=== PATIENT | male | born 1945 ===

== ENCOUNTER 2016-09-28 17:59 | Inpatient (IN) ==
[2016-09-28] MEDS ORDERED: LASIX IV ONE (18:18)
[2016-09-28] MEDS ORDERED: SOLU-MEDROL IV ONE (18:18)
[2016-09-28] MEDS ORDERED: NITROGLYCERIN TOP ONE (18:19)
[2016-09-28 18:37] LABS: BE 0.4 mmoll (-3.0-3.0); BLOOD TYPE ARTERIAL; DRAW SITE L RADIAL; METHB 1.6 % (0.0-1.5); O2(CT) 19.3 mL/dL (15.0-23.0); PCO2(98.6) 32 mmHg (35-45); PO2(98.6) 79 mmHg (60-100); SAMPLE BLOOD; THB 14.5 g/dL (11.5-17.4); pH(98.6) 7.47 (7.35-7.45)
[2016-09-28 18:40] LABS: ALLEN TEST YES; MODALITY CANNULA
[2016-09-28 18:51] LABS: MANUAL DIFF NEEDED? NO
[2016-09-28 18:53] LABS: BASO% 0.2 % (0.0-0.8); EOS# 0.32 X1000 (0.0-0.7); EOS% 2.4 % (0.0-10.0); HEMATOCRIT 41.7 % (42.0-52.0); HEMOGLOBIN 14.2 g/dL (14.0-18.0); IMM GRAN# 0.02 X1000 (0.0-0.04); IMM GRAN% 0.1 % (0.0-0.5); LYMPH# 1.39 X1000 (1.2-3.4); LYMPH% 10.3 % (20.5-51.1); MCH 32.3 PG (27-31); MCHC 34.1 g/dL (33-37); MONO# 1.44 X1000 (0.11-0.59); MONO% 10.7 % (1.7-9.3); MPV 9.9 FL (7.4-10.4); NEUT% 76.3 % (42.2-75.2); PLT 204 X1000 (130-400); RBC 4.39 XMIL (4.7-6.1)
--- NOTE | 2016-09-28 18:57 | EKG Report ---
Test Performed on : 09/28/2016 6:14:14 PM Test Reason : CHEST PAIN Blood Pressure : / mmHG Vent. Rate : 114 BPM Atrial Rate : 150 BPM P-R Int : 000 ms QRS Dur : 084 ms QT Int : 372 ms P-R-T Axes : 000 051 079 degrees QTc Int : 512 ms Atrial fibrillation. with rapid ventricular response. Nonspecific ST and T wave abnormality Abnormal ECG No previous ECGs available Unconfirmed Result
[2016-09-28 19:13] LABS: URINE CULTURE PL NEEDED? NO
[2016-09-28 19:19] LABS: CALCIUM 9.3 mg/dL (8.8-10.2); POTASSIUM 3.7 mmol/L (3.5-5.1); TOTAL BILIRUBIN 0.4 mg/dL (0.20-1.00); TOTAL PROTEIN 6.9 g/dL (6.3-8.3)
[2016-09-28 19:20] LABS: INR 1.36 (0.86-1.15)
[2016-09-28 19:21] LABS: PTT PL 44.1 Seconds (22.6-43.9)
[2016-09-28 19:28] LABS: FREE T4 1.41 ng/dL (0.93-1.70)
[2016-09-28 19:38] LABS: BILIRUBIN URINE NEGATIVE (NEGATIVE); BLOOD URINE NEGATIVE (NEGATIVE); CLARITY CLEAR (CLEAR); COLOR YELLOW; GLUCOSE URINE NEGATIVE (NEGATIVE); LEUKOCYTES URINE NEGATIVE (NEGATIVE); NITRITE URINE NEGATIVE (NEGATIVE); PH URINE 6.5; PROTEIN URINE NEGATIVE (NEGATIVE); SP GRAVITY URINE 1.005; UROBILINOGEN URINE NORMAL
[2016-09-28 19:50] LABS: UR AMPHETAMINES QUAL NONE DETECTED (NONE DETECT); UR BARBITUATES QUAL NONE DETECTED (NONE DETECT); UR BENZODIAZEPIN QUAL NONE DETECTED (NONE DETECT); UR CANNABINOIDS QUAL NONE DETECTED (NONE DETECT); UR COCAINE QUAL NONE DETECTED (NONE DETECT); UR MDMA QUAL NONE DETECTED (NONE DETECT); UR METHADONE QUAL NONE DETECTED (NONE DETECT); UR METHAMPHETAMINE QUAL NONE DETECTED (NONE DETECT); UR OPIATES QUAL NONE DETECTED (NONE DETECT); UR OXYCODONE QUAL NONE DETECTED (NONE DETECT); UR PCP QUAL NONE DETECTED (NONE DETECT); UR TCA QUAL NONE DETECTED (NONE DETECT)
[2016-09-28 19:52] LABS: URINE CAST NONE SEEN /LPF; URINE CRYSTAL NONE SEEN /HPF; URINE EPITHELIAL CELLS <10 /HPF (<10); URINE SOURCE CLEAN CATCH
[2016-09-28] MEDS ORDERED: CARDIZEM IV ONE (19:57)
--- NOTE | 2016-09-28 20:18 | Diag Imaging Result Document ---
PROCEDURE NAME: CHEST-2 VIEWS - 09/28/2016 CHEST, 2 VIEWS: FINDINGS: No comparison exam. Heart size appears the upper range of normal. There are bilateral interstitial opacities which are most prominent at the lower lungs. There is no dense consolidation identified. There are possible tiny bilateral pleural effusions. There is no pneumothorax seen. IMPRESSION: Bilateral interstitial opacities, most prominent at the lower lungs. These may relate to interstitial pneumonitis or interstitial edema.
[2016-09-28] MEDS: CARDIZEM 100 MG/NS 100 MG/100 ML IVPB IV SCH (21:54)
[2016-09-28] MEDS ORDERED: MORPHINE IV PRN (23:03)
[2016-09-28] MEDS ORDERED: ZOFRAN IV PRN (23:03)
--- NOTE | 2016-09-29 00:35 | Diag Imaging Result Document ---
PROCEDURE NAME: ANGIOGRAM/PULMONARY ARTERIES - 09/28/2016 FINDINGS: Exam performed with intravenous contrast. A dose reduction protocol was used. Axial and reformatted coronal images are obtained. No comparison CT scan is available. There are no filling defects identified in the pulmonary arteries. There are small to medium bilateral pleural effusions with some adjacent dependent atelectasis. There is no consolidation or pneumothorax identified. Included sections of upper abdomen show scattered well-demarcated fluid density lesions in the liver, which measure up to 2.6 cm, and are compatible with cysts. IMPRESSION: 1. No evidence of pulmonary embolism. 2. Small to medium bilateral pleural effusions with adjacent dependent atelectasis. No discrete pneumonia.
[2016-09-29] MEDS: CARDIZEM 100 MG/NS 100 MG/100 ML IVPB IV SCH ×4 (03:50→20:24)
[2016-09-29] MEDS ORDERED: MORPHINE IV PRN ×2 (07:41→14:14)
[2016-09-29] MEDS ORDERED: LASIX IV ONE ×2 (08:34→08:39)
[2016-09-29] MEDS ORDERED: COZAAR PO SCH (09:00)
[2016-09-29] MEDS ORDERED: ASPIRIN PO SCH (09:00)
[2016-09-29] MEDS: ELIQUIS PO SCH ×2 (09:10→20:25)
[2016-09-29 09:16] LABS: BASO% 0.1 % (0.0-0.8); EOS# 0.01 X1000 (0.0-0.7); EOS% 0.1 % (0.0-10.0); HEMATOCRIT 38.8 % (42.0-52.0); HEMOGLOBIN 13.1 g/dL (14.0-18.0); IMM GRAN# 0.02 X1000 (0.0-0.04); IMM GRAN% 0.2 % (0.0-0.5); LYMPH# 0.57 X1000 (1.2-3.4); LYMPH% 4.8 % (20.5-51.1); MANUAL DIFF NEEDED? YES; MCHC 33.8 g/dL (33-37); MCV 94.9 FL (81-99); MONO# 0.43 X1000 (0.11-0.59); MONO% 3.6 % (1.7-9.3); MPV 10.7 FL (7.4-10.4); NEUT% 91.2 % (42.2-75.2); PLT 211 X1000 (130-400); RBC 4.09 XMIL (4.7-6.1)
[2016-09-29 09:24] LABS: AGAP 17; BUN 20 mg/dL (8-22); CHLORIDE 100 mmol/L (98-107); COSMO 283; POTASSIUM 3.7 mmol/L (3.5-5.1); SODIUM 138 mmol/L (136-145); TCO2 21 mmol/L (25-35)
--- NOTE | 2016-09-29 10:44 | HISTORY AND PHYSICAL ---
CHIEF COMPLAINT: Palpitations. HISTORY OF PRESENT ILLNESS: A 71-year-old male with a past medical history of atrial fibrillation, hypertension and obesity came in to the emergency department yesterday with a chief complaint of flu-like symptoms and palpitations. This patient is coming from [place] and he is just visiting here with a family member. Also. He states that 1 month ago he was hospitalized in [place] secondary to atrial fibrillation and RVR and he was discharged 2 days after that. As per the patient, he has been presenting flu-like syndrome including generalized weakness and runny nose for the past 2 days but yesterday he was complaining of shortness of breath and palpitations so he decided to come to the emergency department. In the emergency department, they found out that this patient has atrial fibrillation with an increase of heart rate, RVR. He was placed on diltiazem drip, and he was transferred to the ICU. Today, I evaluated this patient. This patient is stable. He is still with high heart rate and the cardiology department has been consulted. REVIEW OF SYSTEMS: Extremities: This patient states that he has been having lower extremity edema for the past 2 weeks and also on his previous hospitalization 1 month ago. The rest of the 14 points of the review of systems were reviewed. All negative except as per HPI. PAST MEDICAL HISTORY: Hypertension, obesity. FAMILY HISTORY: Father with stroke and hypertension. Mother with cancer probably at the level of the liver. PAST SURGICAL HISTORY: Cholecystectomy and TURP. SOCIAL HISTORY: He used to smoke but he stopped smoking in 1979. He is a retired teacher. No drugs. Alcohol occasionally. ALLERGIES: No known allergies. BLOOD TRANSFUSIONS: No blood transfusion. MEDICATIONS: Aspirin 81 mg p.o. daily. Diltiazem 180 mg p.o. daily. Eliquis 5 mg p.o. b.i.d., atorvastatin 10 mg p.o. daily, losartan 100 mg p.o. daily, metoprolol tartrate 25 mg p.o. b.i.d., ranitidine 150 mg p.o. b.i.d. PHYSICAL EXAMINATION: VITAL SIGNS: Temperature 98.9 degrees, pulse on the monitor 119, respiratory rate 20, blood pressure 130/71, O2 saturation 100% on 2 L of nasal cannula. HEENT: Head normocephalic. No trauma. PERRLA. NECK: Supple. No JVD. No masses. Central trachea. CHEST: Mild rales at the level of the bases. No wheezing. CARDIOVASCULAR: Irregularly irregular rate and rhythm. No murmurs. Tachycardic. ABDOMEN: Soft, nontender, nondistended. No hepatosplenomegaly. Obese. EXTREMITIES: 2+ lower extremity edema up to the knee. NEUROLOGICAL: The patient is alert and oriented x3. No focal neurological deficits. LABORATORY DATA: Pending today's laboratory. Laboratory, 09/28/2016, WBC 13.5 , hemoglobin 14.2, hematocrit 41.7, platelets 204,000. Sodium 137, potassium 3.7, chloride 101, bicarbonate 23, BUN 16, creatinine 1.2, glucose 116, calcium 9.3. BNP 2044. Troponins negative x2. TSH 2.1. Free T4 of 1.4. ASSESSMENT AND PLAN: 1. Atrial fibrillation with RVR, this patient has been placed in ICU, he is currently on diltiazem drip, cardiology department has been consulted. We will follow their recommendations. This patient is not complaining at this moment of chest pain or shortness of breath. We will continue with the same treatment. Probably today, we can start this patient on his home medications once the heart rate is better controlled. 2. Hypertension. The blood pressure is stable. Continue with the same management. 3. Questionable congestive heart failure, this patient has bilateral lower lung fluid and also fluid at the level of the lower extremities, he received 1 dose apparently in the emergency department of [facility] and I want to repeat it today. His proBNP is 2044. 4. Elevated D-dimer, this patient is not complaining of shortness of breath and he has no pain at the level of the lower extremities. We will monitor. We did a CT angiogram that showed no evidence of pulmonary embolism and a small to medium bilateral pleural effusion with dependent atelectasis, no discrete pneumonia. cc: Wesley Dawkins MD [facility] HOSPITALMary
[2016-09-29 11:18] LABS: LYMPHS 6 % (21-51); MONO 2 % (1-9)
--- NOTE | 2016-09-29 12:17 | CONSULTATION ---
DATE OF CONSULTATION: 09/29/2016 REASON FOR CONSULTATION: Atrial fibrillation. HISTORY OF PRESENT ILLNESS: Mr. Kyle is a 71-year-old gentleman who was diagnosed to have atrial fibrillation, has hypertension, obesity. Was admitted in August 14 with similar symptoms and was diagnosed to have atrial fibrillation. He followed up with a branch director there and he was put on medications and anticoagulation therapy for stroke prophylaxis. He states he did not have any myocardial infarction. No other cardiac history at that time and as far as he can remember his tests that were normal from a cardiac standpoint. He is visiting family in [place]. Has had noticed some runny nose and palpitations with increasing shortness of breath, similar to what he had when he was admitted in [place]. He was noted to be in atrial fibrillation, rapid rate, and started on a Cardizem drip. He denies chest pain. There is no dizziness of josie syncope. REVIEW OF SYSTEMS: A 14 point review of systems was done.GI: There is no history of nausea, vomiting, diarrhea. There is no history of hematemesis or melena. Respiratory System: There is no history of fevers. Other symptoms as above. Genitourinary: There is no dysuria or hematuria. Endocrine: Stable. PAST MEDICAL HISTORY: Hypertension, atrial fibrillation recent diagnosis, obesity. FAMILY HISTORY: Father with stroke and hypertension. Mother with cancer. PAST SURGICAL HISTORY: Cholecystectomy, TURP. SOCIAL HISTORY: He used to smoke but he quit smoking in 1979. He is a retired teacher. There is no history of alcohol abuse. ALLERGIES: Not known to be allergic to any medications HOME MEDICATIONS: Aspirin 81 mg a day, Cardizem 180, Eliquis 5 mg p.o. b.i.d., atorvastatin 10, losartan 100, metoprolol 25 b.i.d., ranitidine. PHYSICAL EXAMINATION: Vital Signs: Blood pressure was 130/70. Cardiovascular System: Normal jugular venous pressure. There is no thyromegaly. No carotid bruit. First and second heart sounds were heard. There is no S3 gallop. Respiratory System: Normal air entry. There are no crepitations or rhonchi. Abdomen: Soft, nontender. There was no guarding or rigidity. Bowel sounds were heard. Central nervous system: Alert, oriented, was moving all 4 extremities. Extremities: Examination of lower extremities reveal trace edema. LABORATORY EXAMINATION: WBC 13, hemoglobin 14.2, hematocrit 41, platelet count of 204,000. Sodium 137, potassium 3.7, BUN 23, creatinine 1.2. Cardiac enzymes negative. TSH was normal. ASSESSMENT AND PLAN: Mr. Gamal Kyle is a 71-year-old gentleman with a history of hypertension, obesity diagnosed to have atrial fibrillation in [place] in August. He has been taking his medications and anticoagulation therapy since then on a regular basis. He is admitted with flu-like symptoms. However, he also had increasing palpitations and shortness of breath similar to when he was admitted in [place]. RECOMMENDATIONS: 1. I had a detailed discussion with the patient. Would recommend an elective cardioversion. He has been anticoagulated for more than a month. We will plan for elective cardioversion. 2. We will get an echocardiogram to assess cardiac and valvular function. 3. We will transfer him to [facility]. 4. I will start him on amiodarone per standard protocol p.o. tablets and I have also advised him after his cardioversion that we would like him to follow up with his branch director and primary physician in [place] as soon as he gets back to [place]. 5. As far as other medications are concerned, he was on beta-blockers and Cardizem at home. I will discontinue the beta-blockers and once he is cardioverted we will put him back on p.o. Cardizem at a lower dose given the fact that we are starting him on amiodarone. He has a history of hypertension. He is on losartan and would recommend continuing the losartan. 6. He was started on aspirin. I have not made any changes. I do not think he has had a stress test to rule out and assess for ischemia. He denies any chest pain. I have advised him to continue with the aspirin but probably would require a stress test which he can have done and follow up with his physicians in [place]. cc: Jw Mohr MD
[2016-09-29] MEDS ORDERED: ZOFRAN IV PRN (14:14)
[2016-09-29] MEDS: ASPIRIN PO SCH (15:18)
[2016-09-29] MEDS: COZAAR PO SCH (15:19)
[2016-09-29] MEDS: LIPITOR PO SCH (20:25)
[2016-09-29] MEDS: CORDARONE PO SCH (20:25)
[2016-09-29] MEDS ORDERED: LIPITOR PO SCH (21:00)
[2016-09-29] MEDS ORDERED: CORDARONE PO SCH (21:00)
[2016-09-30] MEDS: CARDIZEM 100 MG/NS 100 MG/100 ML IVPB IV SCH ×2 (06:38→13:41)
[2016-09-30] MEDS: ASPIRIN PO SCH ×2 (09:02→09:44)
[2016-09-30] MEDS: ELIQUIS PO SCH ×3 (09:03→20:56)
[2016-09-30] MEDS: COZAAR PO SCH ×2 (09:03→09:44)
[2016-09-30] MEDS: CORDARONE PO SCH ×3 (09:03→20:56)
--- NOTE | 2016-09-30 10:04 | ECHO REPORT ---
ORDER DATE: 09/29/2016 ECHOCARDIOGRAPHIC MEASUREMENTS: 1. Interventricular septum 1, left ventricular posterior wall 1, diastolic diameter 5.4, left atrium 3.8, aorta 3.4. 2. Aortic valve leaflets were sclerosed, trileaflet, opening normally. Tricuspid valve was normal. Pulmonic valve was normal. There was mild pulmonary regurgitation. 3. Atrial fibrillation was noted. There is left atrial enlargement. Normal left ventricular cavity size. Estimated ejection fraction of 50-55%. There was mild LV dysfunction. 4. Doppler studies revealed mild mitral regurgitation. 5. Mild tricuspid regurgitation. Peak velocity across the tricuspid valve was 2.8 m/sec. Pulmonary artery systolic pressure of 41 mmHg. 6. There is no pericardial effusion or obvious intracardiac mass or thrombus seen. 7. Peak velocity across the aortic valve less than 2 m/sec by Doppler studies. There is no aortic stenosis or regurgitation. 8. There is mild mitral annular calcification. cc: Jw Mohr MD
--- NOTE | 2016-09-30 10:17 | PROGRESS NOTE ---
DATE: 09/30/2016 HISTORY: This is a 71-year-old. He presented with palpitations. Has a past medical history of atrial fibrillation diagnosed about a month ago. History of hypertension and mild obesity. He came to the emergency department yesterday with a chief complaint of flu-like symptoms and palpitations. He was visiting from [place] with another family member. States 1 month ago, he was hospitalized in [place] secondary to atrial fibrillation with rapid ventricular rate. Discharge 2 days after that as per patient. He presented with flu-like symptoms, generalized weakness, runny nose for the past couple days. Complained of shortness of breath and palpitations, and decided to come to the emergency department. In the emergency room, they found he was in atrial fibrillation with rapid ventricular rate. They put him on a diltiazem drip. Appeared hemodynamically stable. Past medical history of hypertension, obesity. This morning, he says he feels good. Feels like his heart rate is back to normal. He did have a pulmonary arteriogram yesterday and no evidence of pulmonary embolism. Small to medium bilateral pleural effusions, adjacent dependent atelectasis. No discrete pneumonia appreciated. EKG from the revealed atrial fibrillation with rapid ventricular rate. No significant ST-segment deviation. ASSESSMENT AND PLAN: 1. Atrial fibrillation with rapid ventricular rate. Cardiology to see. He is on a diltiazem drip. He did have some chest pain so we will probably need to make sure there is no coronary insufficiency. Continue to treat the atrial fibrillation and see if he may have had spontaneous cardioversion. 2. Hypertension. Blood pressure is stable. 3. Questionable history of congestive heart failure. I am sure we will explore that, see if we can get records from [place]. He may well need an echocardiogram. He had an elevated D-dimer but pulmonary arteriogram was unremarkable. 4. Review of his orders. He is on Cordarone 400 mg twice a day, Eliquis 5 mg twice a day, aspirin 81 mg a day, Lipitor 10 mg at bedtime. He is on a diltiazem drip, Cozaar 100 mg a day. He was given 1 dose of Lasix yesterday. 5. Review of his lab again. Electrolytes look okay. We may supplement him with a little bit of potassium. cc: Forrest Chappell MD
[2016-09-30] MEDS: KLOR-CON PO SCH (11:45)
[2016-09-30] MEDS ORDERED: XYLOCAINE 4% TOPICAL SOLUTION ONE (11:46)
[2016-09-30] MEDS ORDERED: NS 1,000 ML ONE (12:08)
[2016-09-30] MEDS ORDERED: CLAVE ANES SET 100 IN 11965 ONE (12:08)
[2016-09-30] MEDS ORDERED: CLAVE TWINSITE 32 IN 11959 ONE (12:08)
--- NOTE | 2016-09-30 12:13 | EKG Report ---
Test Performed on : 09/30/2016 10:15:41 AM Test Reason : afib Blood Pressure : / mmHG Vent. Rate : 102 BPM Atrial Rate : 089 BPM P-R Int : 000 ms QRS Dur : 094 ms QT Int : 360 ms P-R-T Axes : 000 036 -04 degrees QTc Int : 469 ms Atrial fibrillation. with rapid ventricular response. Nonspecific ST and T wave abnormality Abnormal ECG When compared with ECG of 28-SEP-2016 18:14, Nonspecific T wave abnormality has replaced inverted T waves in Inferior leads Nonspecific T wave abnormality has replaced inverted T waves in Anterior leads Confirmed by Ebonie BLAIR, Remi Alejandro ([id number]) on 10/02/2016 5:30:31 PM
[2016-09-30] MEDS ORDERED: DIPRIVAN 1% ONE (13:22)
[2016-09-30] MEDS ORDERED: VERSED ONE (13:23)
[2016-09-30] MEDS ORDERED: XYLOCAINE-MPF 2% ONE (13:35)
--- NOTE | 2016-09-30 17:49 | ECHO REPORT ---
ORDER DATE: 09/30/2016 TRANSESOPHAGEAL ECHOCARDIOGRAPHY CARDIOVERSION REPORT: SUMMARY: After intravenous sedation per Diprivan per anesthesiology, I passed transesophageal echocardiography probe into the esophagus without difficulty. Transesophageal echocardiography subsequently performed and revealed. 1. Aortic, mitral, tricuspid and pulmonic valves are without structural abnormality. There is mild centrally directed mitral regurgitation. There is trace aortic regurgitation passing between the base of the noncoronary cusp and left coronary cusp. There is mild tricuspid regurgitation. 2. Normal left ventricular dimensions suggested. Estimated left ventricular ejection fraction approximately 50%. No regional wall motion abnormalities are evident. Left atrium, right atrium, and right ventricle are of normal size with grossly preserved right ventricular systolic performance. All 4 cardiac chambers and left atrial appendage are free of intracardiac thrombus. There is spontaneous contrast evident in left atrium. 3. Interatrial septum appears intact without evidence on color Doppler of interatrial shunting. Intravenous agitated saline contrast study performed and reveals no evidence of intracardiac shunting. 4. Aortic root, proximal ascending aorta and descending thoracic aorta appear free of atheromata. 5. No pericardial effusion. Given that there is no evidence of intracardiac thrombus, synchronous direct current cardioversion of atrial was pursued. The patient was cardioverted with synchronized shock with 200 joules biphasic converting atrial fibrillation to sinus rhythm. CONCLUSIONS: 1. Mild mitral regurgitation, mild tricuspid regurgitation, and trace aortic regurgitation. 2. No intracardiac thrombus. 3. Estimated left ventricular ejection fraction 50%. 4. Successful direct current cardioversion of atrial fibrillation restoring sinus rhythm. cc: MD Nya Sanchez PA
[2016-09-30] MEDS: LIPITOR PO SCH (20:56)
[2016-10-01] MEDS: KLOR-CON PO SCH (09:21)
[2016-10-01] MEDS: CORDARONE PO SCH (09:21)
[2016-10-01] MEDS: ASPIRIN PO SCH (09:22)
[2016-10-01] MEDS: COZAAR PO SCH (09:22)
[2016-10-01] MEDS: ELIQUIS PO SCH (09:22)
[2016-10-01 11:41] VITALS: BP 130/66
--- NOTE | 2016-10-01 13:52 | PROGRESS NOTE ---
DATE: 10/01/2016 SUBJECTIVE: Today, Mr. Kyle refers to be doing better. Denies any generalized fatigue or dizziness. Patient is status post YESI with cardioversion yesterday. His heart rate has now been in sinus since then. OBJECTIVE: Vital signs: Blood pressure is 130/66, pulse of 65, respirations 14 , temperature 97.6. General: Mr. Gamal Kyle is a 71-year-old male. He was in bed and he did not seem to be in any distress. HEENT: Mucosa is pink and moist, anicteric, acyanotic. Neck: Supple. Chest: Good air entry bilaterally. No crepitations. No rhonchi. Cardiovascular: Regular rate and rhythm. Telemetry shows normal sinus. Abdomen: Soft. Extremities: Maybe about 1+ pedal edema. SEARCH ENGINE MARKETING MANAGER: Patient is alert and oriented x4. There is no focal neurological deficit. LABORATORY DATA: None for today. A chest x-ray that was done. A CTA which was done on presentation shows no evidence of PE, but there was small to moderate bilateral pleural effusions with adjacent dependent atelectasis. ABG was unremarkable. Saturation was in the 94 at 1 point on admission. ASSESSMENT: 1. Acute diastolic heart failure due to tachyarrhythmias( Afib with RVR). 2. Atrial fibrillation, rapid ventricular rate on presentation. Patient is status post transesophageal echocardiogram with cardioversion. The patient does have high [id number] score at least 3. One for age,Hypertension and congestive heart failure which will qualify him to be on anticoagulation for the rest of his life. Patient is currently on Eliquis. 3. Hypertension controlled. 4. Bilateral pleural effusions on admission due to diastolic heart failure. PLAN: In general, Mr. Kyle is doing a whole lot better. He did have a YESI with direct cardioversion yesterday. Since then, he has been in sinus rhythm. If it is okay with Cardiology we are going to discharge him today. Patient will follow up with Dr. Pearson and he will go home on current medications which include amiodarone, Eliquis, aspirin, atorvastatin, Cozaar. We will withhold the metoprolol and diltiazem until he follows up with Cardiology. cc: MD JACKELINE Arellano
--- NOTE | 2016-10-02 10:02 | DISCHARGE SUMMARY ---
ADMISSION DATE: 09/28/2016 DISCHARGE DATE: 10/01/2016 CONSULTATIONS: Dr. Mohr, cardiology. PERTINENT PROCEDURES: 1. Pulmonary arteriogram showed no evidence of pulmonary embolism. Small to medium bilateral pleural effusions with adjacent dependent atelectasis. No discrete pneumonia. 2. Echocardiogram showed an EF of 50 to 55% with mild LV dysfunction. 3. DCC cardioversion performed by Dr. Melo Champion. Successful cardioversion of atrial fibrillation, restoring sinus rhythm. DISCHARGE DIAGNOSES: 1. Atrial fibrillation with rapid ventricular response. Initially on Cardizem drip. The patient underwent a DCC cardioversion with Dr. Champion with successful cardioversion to sinus rhythm. Patient will continue on amiodarone as well as Eliquis. 2. Hypertension. Continue home medications. 3. Obesity. Patient educated on diet and exercise. HOSPITAL COURSE: Briefly, Mr. Kyle is a 71-year-old gentleman who was diagnosed with atrial fibrillation, hypertension, and obesity. He is from [place]. He was admitted back in August, the 1st week with similar symptoms. Was diagnosed to have atrial fibrillation. He had a loader engineer in [place] who put him on medications and anticoagulation therapy for stroke prophylaxis. There was no myocardial infarction. No other cardiac history that the patient could remember. Patient was visiting family member in [place]. He noticed he was having a runny nose as well as palpitations and an increase in shortness of breath, similar to what he had when he was admitted in [place]. In the ED he was noted to be in atrial fibrillation with RVR, started on a Cardizem drip, and transferred to [facility] where he was admitted to the CICU unit. He was started on amiodarone per the standard protocol, p.o. tablets. He did undergo a DCC cardioversion with Dr. Champion and he has been advised to follow up with his primary loader engineer and primary care physician in [place] as soon as possible. They did lower the dose of his Cardizem given the fact that they were starting him on amiodarone and they discontinued his beta emerson once he was converted to sinus rhythm and continued on his losartan, as well as started on aspirin. Cardiology feels that the patient is appropriate for discharge home today. VITAL SIGNS: At time of discharge, temperature is 97.6 degrees, heart rate 65, respirations 14, blood pressure 130/66, O2 is 98%. DISCHARGE DIET: Healthy heart. DISCHARGE MEDICATIONS: 1. Amiodarone 400 mg p.o. b.i.d. 2. Eliquis 5 mg p.o. b.i.d. 3. Aspirin 81 mg p.o. daily. 4. Lipitor 10 mg p.o. daily. 5. Losartan 100 mg p.o. daily. 6. Zantac 150 mg p.o. b.i.d. FOLLOWUP: The patient is being discharged home. He will need to follow up with his primary care physician as well as home loader engineer as soon as he gets back to [place], no more than 2 weeks. He can return to the ED for any worsening of symptoms. DISCHARGE TIME: 30 minutes. Dictated by EMILY Matthew for Carlos Pena MD cc: Carlos Pena MD
--- NOTE | 2016-12-26 18:25 | PROVIDER DOCUMENTATION ---
This chart was entered by Tiffanie Saunders Scribe, acting as scribe for Andrew Argueta DO. HPI-Chest Pain - General Chief Complaint: Chest Pain Stated Complaint: CHEST PAIN, SOB Time Seen by Provider: 09/28/16 18:13 Source: patient Allergies/Adverse Reactions: Patient Allergies Allergy/AdvReac Type Severity Reaction Status Date / Time No Known Allergies Allergy Verified 09/28/16 18:12 Home Medications: Home Medication List Medication Instructions Recorded Confirmed Last Taken Type ATORVAstatin [Lipitor] 10 mg PO DAILY 09/28/16 09/29/16 Unknown History Apixaban [Eliquis] 5 mg PO BID 09/28/16 09/29/16 Unknown History Aspirin 81 mg PO DAILY 09/28/16 09/29/16 Unknown History Losartan Potassium 100 mg PO DAILY 09/28/16 09/29/16 Unknown History Ranitidine HCl [Zantac] 150 mg PO BID 09/28/16 09/29/16 Unknown History Amiodarone HCl 400 mg PO BID #60 tablet 10/01/16 Unknown Rx - History of Present Illness-CP Nature of Presenting Problem: 71 Yo M presents to the ER with the complain of CP and hard time deep breathing since this morning. PT states that he was feeling wheezing last couple morning. Pt states that he has irregular heart beats and is been treating for this in [place] as he lives there and is here for a visit. Location: reports: central Quality of Pain: reports: sharp Severity in ED: moderate Onset/Duration: this morning Timing: still present Review of Systems - Adult - REVIEW OF SYSTEMS - ADULT Constitutional: denies: chills, fever Eyes: reports: no symptoms reported Ears, Nose, Mouth & Throat: denies: ear pain, nose pain Cardiovascular: reports: chest pain. denies: palpitations Respiratory: reports: wheezing. denies: cough Gastrointestinal: denies: abdominal pain, nausea Genitourinary: reports: no symptoms reported Musculoskeletal: reports: no symptoms reported Integumentary: reports: no symptoms reported Neurological: reports: no symptoms reported Psychiatric: reports: no symptoms reported Endocrine: reports: no symptoms reported Hematologic/Lymphatic: reports: no symptoms reported Allergic/Immunologic: reports: no symptoms reported All Other Systems: Reviewed and Negative Past History - Adult - PAST MEDICAL HISTORY-ADULT Review of Records: reports: Old Records Reviewed, Nursing Assessment Review Cardiovascular: reports: A-Fib, HTN, hyperlipidemia - PRIOR SURGERIES/PROCEDURES Surgical/Procedure History: reports: cholecystectomy, other (turp) - IMMUNIZATION STATUS Childhood Immunizations: See Nurse Assessment Flu Vaccine: See Nurse Assessment - SOCIAL HISTORY Substance Use: alcohol Alcohol Use Frequency: occasionally Physical Exam-General - PHYSICAL EXAM-ADULT Initial Vital Signs Reviewed: Yes - CONSTITUTIONAL General Appearance: appears well, alert - EYES Eyes: PERRL/EOMI, pink conjunctivae - HEAD, EARS, NOSE, MOUTH & THROAT HENMT: normal ENT inspection, TMs normal - NECK Neck: non-tender, full range of motion - RESPIRATORY Respiratory: no respiratory distress, wheezing (bilat). negative: no pleuratic chest pain - CARDIOVASCULAR Cardiovascular: no edema. negative: regular rate, rhythm - MUSCULOSKELETAL Back Exam: no CVA tenderness, no vertebral tenderness - SKIN Integumentary: normal color, warm/dry - NEUROLOGIC Neurologic: grossly normal, no motor/sensory deficits - PSYCHIATRIC Psych/Mental Status: normal mood/affect, normal thought content, normal thought process, oriented x 3 Progress - PLAN OF CARE/RESULTS Progress/Plan/Lab Results: Orders Category Date Time Status Admit - [facility] Routine AdmDCTranf 09/28/16 23:03 Ordered Activity - Strict Bedrest ORDERED Care 09/28/16 23:03 Active Call Admitting on Arrival AT ADMISSION Care 09/28/16 23:04 Completed Cardiac Monitoring DIRECTED Care 09/28/16 18:14 Completed Saline Loc DIRECTED Care 09/28/16 23:03 Completed Saline Loc NOW Care 09/28/16 18:14 Completed Vital Signs Order ARRIVAL TO ROOM Care 09/28/16 23:03 Completed Heart Healthy Diet Diet 09/28/16 23:04 Completed CHEST-2 VIEWS [RAD] Stat Exams 09/28/16 18:14 Completed CTA [ANGIOGRAM/PULMONARY ARTERIES] [CT] Stat Exams 09/28/16 19:52 Completed ABG [RESP] Routine Lab 09/28/16 18:17 Completed ALCOHOL BLOOD Stat Lab 09/28/16 18:33 Completed CBC WITH ELECTRONIC DIFF [HEME] Stat Lab 09/28/16 18:33 Completed CK PROFILE [SP CHEM] Stat Lab 09/28/16 18:33 Completed COMPREHENSIVE METABOLIC PANEL [CHEM] Stat Lab 09/28/16 18:33 Completed D-DIMER PL [COAG] Stat Lab 09/28/16 18:33 Completed FREE T4 Stat Lab 09/28/16 18:33 Completed MAGNESIUM [CHEM] Stat Lab 09/28/16 18:33 Completed PRO B-NATRIURETIC PEPTIDE Stat Lab 09/28/16 18:33 Completed PROTIME WITH INR PL [COAG] Stat Lab 09/28/16 18:[address] [COAG] Stat Lab 09/28/16 18:33 Completed TROPONIN T Q8HR Lab 09/29/16 05:00 Completed TROPONIN T Q8HR Lab 09/29/16 12:50 Completed TROPONIN T Q8HR Lab 09/29/16 20:50 Completed TROPONIN T Stat Lab 09/28/16 18:33 Completed TSH Stat Lab 09/28/16 18:33 Completed UA NIMS W/REFLEX CULT PL [URINALYSIS] Stat Lab 09/28/16 19:05 Completed [address]INE DRUG SCREEN PL Stat Lab 09/28/16 19:12 Completed VITAMIN B12 Stat Lab 09/28/16 18:33 Completed Diltiazem 100 mg/Ns [Cardizem 100 mg/Ns] Med 09/28/16 21:54 Discontinued 100 mg in 100 ml IV 5 mg/hr Diltiazem [Cardizem] Med 09/28/16 19:57 Discontinued 10 mg IV NOW ONE Furosemide [Lasix] Med 09/28/16 18:18 Discontinued 40 mg IV NOW ONE Methylprednisolone Sod Succ [Solu-Medrol] Med 09/28/16 18:18 Discontinued 125 mg IV NOW ONE Morphine Med 09/28/16 23:03 Discontinued 2 mg IV Q2H PRN PRN Nitroglycerin Med 09/28/16 18:19 Discontinued 1 inch TOP NOW ONE Ondansetron [Zofran] Med 09/28/16 23:03 Discontinued 4 mg IV Q4H PRN PRN Telemetry [OM.EQ] Routine Oth 09/28/16 23:03 Active EKG [EKG] Stat Ther 09/28/16 18:14 Draft Transfer/Admit Order [TRANSFER] Routine Transfer 09/28/16 23:05 Completed Result Diagrams: 09/29/16 05:00 09/29/16 05:00 - EKG 1 Time of EKG reading by physician:: 18:14 EKG Read and Signed by:: Andrew Argueta EKG Interpretation (*Must complete 3 of following elements*): Abnormal Rate: 114 Rhythm: Non specific ST and T wave Abnormality ST Wave: non-specific ST changes (Non specific ST and T wave Abrnormailty) Comments: Abrnormal ECG - XRAY 1 XRAY Study: Chest (bilat) Impression: Abnormal, See EMR Report XRAY Interpretation: intersitial pneumonitis versus intersitial edema by radiologist - CT/MRI 1 CT Study: Angiogram (Pulomanry Arteries) Impression: Abnormal CT Results: no evidence of PE;small to medium bilat effusions; no discrete pneumonia - CONSULTS/PCP/HOSPITALIST Notification #1 *Consult/PCP/Hospitalist*: Dr. mead Time Discussed: 22:52 Reason/Comments: Dr. Argueta consulted with Dr. Mead about patient Departure - Departure Date of Disposition Decision: 09/18/16 Time of Disposition Decision: 23:40 DIAGNOSIS: Chest pain Qualifiers: Chest pain type: unspecified Qualified Code(s): R07.9 - Chest pain, unspecified Disposition: ADMITTED INPATIENT 09 Certified Medical Emergency: Emergent Condition: Stable - Critical Care Note This patient required my direct & personal management of CC.: No This chart was documented by the indicated scribe, (Tiffanie Saunders, Fredrick) and accurately reflects the services I performed and decisions made by , Andrew Argueta DO, as attested by the provider's signature.
== END 2016-10-01 14:10 | disposition home or self-care (01) ==
LOC: P.ED 17:59 → P.ICU 23:40 → SUATTDRO 23:40 → 3S 09-29 14:10
PROVIDERS: ATTEND Internal Medicine